=== PATIENT | male | born 1980 | race Caucasian/White ===

== ENCOUNTER 2019-07-04 11:29 | Emergency (ER) | payer MEDICAID, OTHER ==
[~2019-07-04] VITALS: Ht 188 cm; Wt 113.6 kg
[~2019-07-04 11:29] MED LIST: HYDR-4383 PO; HYDR25SU32 RC
[2019-07-04 11:34] VITALS: BP 142/90
--- NOTE | 2019-07-04 11:43 | NUR ---
AWAITING FOR ED .
[2019-07-04] MEDS ORDERED: LIDOcaine 1% W/epiNEPHrine 1:200,000 10ml vial IJ ONE (12:15)
[2019-07-04] MEDS ORDERED: LIDOcaine 1% w/EPI 1:200,000 injection 10mL vial IM ONE (12:15)
== END 2019-07-04 13:05 | disposition home or self-care (01) ==
LOC: ER 11:29
DX: L02.31 Cutaneous abscess of buttock (principal); Z79.899 Other long term (current) drug therapy
CPT/HCPCS: 10060; 87070; 87077; 87185; 87186; 99284

== ENCOUNTER 2019-07-05 07:59 | Emergency (ER) | payer MEDICAID, OTHER ==
[~2019-07-05] VITALS: Ht 188 cm; Wt 120.0 kg
[2019-07-05 08:03] VITALS: BP 130/95
== END 2019-07-05 08:44 | disposition home or self-care (01) ==
LOC: ER 08:00
DX: L02.31 Cutaneous abscess of buttock (principal)
CPT/HCPCS: 99281

== ENCOUNTER 2019-10-13 09:01 | Emergency (ER) | payer OTHER ==
[~2019-10-13] VITALS: Ht 188 cm; Wt 133.0 kg
[2019-10-13 09:28] VITALS: BP 138/98
[2019-10-13] MEDS ORDERED: SULF1TAB49 PO (10:35)
== END 2019-10-13 10:43 | disposition home or self-care (01) ==
LOC: ER 09:01
DX: L02.31 Cutaneous abscess of buttock (principal); Z79.899 Other long term (current) drug therapy
CPT/HCPCS: 10060; 99283

== ENCOUNTER 2020-04-18 17:05 | Emergency (ER) | payer MEDICAID ==
[~2020-04-18] VITALS: Ht 188 cm; Wt 120.5 kg
[2020-04-18 18:34] LABS: BASOPHILS % (AUTO) 0.3 % (0-1); EOSINOPHILS # (AUTO) 0.3 X10'3 (0-0.9); EOSINOPHILS % (AUTO) 3.3 % (0-6); HEMATOCRIT 52.1 % (42.0-52.0); HEMOGLOBIN 17.6 g/dl (14.0-17.9); LYMPHOCYTES # (AUTO) 2.3 X10'3 (1.1-4.8); LYMPHOCYTES % (AUTO) 29.7 % (21-51); MEAN CORPUSCULAR HEMOGLOBIN 30.9 PG (27.0-31.0); MEAN CORPUSCULAR HGB CONC 33.8 g/dL (33.0-36.5); MEAN CORPUSCULAR VOLUME 91.3 FL (78-98); MEAN PLATELET VOLUME 8.5 FL (7.4-10.4); MONOCYTES % (AUTO) 12.8 % (2-12); NEUTROPHILS # (AUTO) 4.2 X10'3 (1.8-7.7); NEUTROPHILS % (AUTO) 53.9 % (42-75); PLATELET COUNT 221 X10'3 (140-440); RED BLOOD COUNT 5.71 X10'6 (4.70-6.10); RED CELL DISTRIBUTION WIDTH 13.1 % (11.5-14.5); WHITE BLOOD COUNT 7.8 X10'3 (4.5-11.0)
[2020-04-18 18:48] LABS: ALANINE AMINOTRANSFERASE 204 U/L (12-78); ALBUMIN 4.8 G/DL (3.4-5.0); ALBUMIN/GLOBULIN RATIO 1.3 (1.1-1.5); ALKALINE PHOSPHATASE 61 IU/L (46-116); ANION GAP 14 (8-16); ASPARTATE AMINO TRANSFERASE 66 U/L (10-37); BILIRUBIN,TOTAL 1.2 MG/DL (0.1-1.0); BLOOD UREA NITROGEN 15 MG/DL (7-18); BUN/CREATININE RATIO 12.8 (5.4-32.0); CALCIUM 9.5 MG/DL (8.5-10.1); CHLORIDE 101 MMOL/L (99-107); CREATININE 1.17 MG/DL (0.60-1.10); GLUCOSE 90 MG/DL (70-104); POTASSIUM 3.8 MMOL/L (3.5-5.1); SODIUM 139 MMOL/L (135-145); TOTAL CARBON DIOXIDE 24.5 MMOL/L (24-32); TOTAL PROTEIN 8.4 G/DL (6.4-8.2); eGFR 69 ML/MIN
[2020-04-18] MEDS ORDERED: ipratropium/albuterol 3ml nebule NEB ONE (20:25)
[2020-04-18] MEDS ORDERED: predniSONE 20 mg tablet PO ONE (20:25)
[2020-04-18] MEDS ORDERED: INHA1INH2 INH (20:30)
[2020-04-18] MEDS ORDERED: ALBU18HF2 INH (20:30)
[2020-04-18] MEDS ORDERED: PRED20TA PO (20:31)
--- NOTE | 2020-04-18 20:36 | NUR ---
resp pagged for tx ordered
--- NOTE | 2020-04-18 20:47 | NUR ---
RESP AT BEDSIDE
[2020-04-18 21:24] VITALS: BP 163/99
== END 2020-04-18 21:24 | disposition home or self-care (01) ==
LOC: ER 17:09
DX: J98.01 Acute bronchospasm (principal); Z79.899 Other long term (current) drug therapy
CPT/HCPCS: 36415; 71046; 80053; 84484; 85025; 93005; 94640; 99285; J7512; 94760

== ENCOUNTER 2021-03-13 06:28 | Emergency (ER) | payer MEDICAID ==
[~2021-03-13] VITALS: Ht 188 cm; Wt 118.2 kg
[~2021-03-13 06:28] MED LIST changes: +ALBU18HF2 INH; +INHA1INH2 INH
[2021-03-13 06:31] VITALS: BP 138/91
[2021-03-13] MEDS ORDERED: LIDOcaine 1% W/epiNEPHrine 1:200,000 10ml vial IJ ONE (07:35)
[2021-03-13] MEDS ORDERED: metroNIDAZOLE 500mg tablet PO ONE (08:05)
[2021-03-13] MEDS ORDERED: ciprofloxacin 250mg tablet PO ONE (08:05)
[2021-03-13] MEDS ORDERED: CIPR250T4 PO (08:07)
[2021-03-13] MEDS ORDERED: METR-159 PO (08:07)
== END 2021-03-13 08:35 | disposition home or self-care (01) ==
LOC: ER 06:29
DX: L02.31 Cutaneous abscess of buttock (principal); F12.90 Cannabis use, unspecified, uncomplicated; Z86.14 Personal history of Methicillin resistant Staphylococcus aureus infection; Z72.89 Other problems related to lifestyle; Z79.2 Long term (current) use of antibiotics; Z79.899 Other long term (current) drug therapy
CPT/HCPCS: 10060; 99284; J3490